=== PATIENT | female | born 1980 | race Caucasian/White ===

== ENCOUNTER 2017-03-26 12:30 | Emergency (ER) | payer MEDICAID ==
[~2017-03-26] VITALS: Ht 157.5 cm; Wt 99.8 kg
[~2017-03-26 12:30] MED LIST: ACET250T22 PO; CEFP250T2 PO; CEPH500C PO; HDR4T PO; IBP600T1 PO; IBUP-1780 PO; LBT200T PO; MULT-608 PO; MULT-927 PO; NAPR-243 PO; NF-TRA/ACE PO; ONDA4TAB11 PO; OXYC-12 PO; PALI273S IM; SULF1TAB38 PO; TRAZ100T92 PO; TRM50T PO
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
[2017-03-26 12:44] LABS: BASOPHILS % (AUTO) 0 % (0-10); EOSINOPHILS # (AUTO) 0.1 10^3/uL (0.0-0.3); EOSINOPHILS % (AUTO) 1 % (0-10); LYMPHOCYTES # (AUTO) 2.1 X 10^3 (1.0-4.0); LYMPHOCYTES % (AUTO) 25 % (12-44); MEAN CORPUSCULAR HEMOGLOBIN 31 PG (25-34); MEAN CORPUSCULAR HGB CONC 35 G/DL (32-36); MEAN CORPUSCULAR VOLUME 88 FL (80-99); MEAN PLATELET VOLUME 10.1 FL (7.4-10.4); MONOCYTES # (AUTO) 0.5 X 10^3 (0.0-1.0); MONOCYTES % (AUTO) 5 % (0-12); NEUTROPHILS # (AUTO) 5.9 X 10^3 (1.8-7.8); NEUTROPHILS % (AUTO) 69 % (42-75); PLATELET COUNT 210 10^3/uL (130-400); RED BLOOD COUNT 4.84 10^6/uL (4.35-5.85); RED CELL DISTRIBUTION WIDTH 13.2 % (10.0-14.5); WHITE BLOOD COUNT 8.6 10^3/uL (4.3-11.0)
[2017-03-26] MEDS ORDERED: ONDANSETRON 4 MG/2 ML (SDV) Z0FRAN IVP ONE (12:45)
[2017-03-26] MEDS ORDERED: NS IV 1000 ML 1,000 ML IV SCH (12:45)
[2017-03-26 13:02] LABS: ALANINE AMINOTRANSFERASE 20 U/L (0-55); ALBUMIN 4.2 GM/DL (3.2-4.5); ANION GAP 13 MMOL/L (5-14); ASPARTATE AMINO TRANSFERASE 13 U/L (5-34); BILIRUBIN,TOTAL 0.5 MG/DL (0.1-1.0); BLOOD UREA NITROGEN 7 MG/DL (7-18); BUN/CREATININE RATIO 8; CALCIUM 9.7 MG/DL (8.5-10.1); CARBON DIOXIDE 20 MMOL/L (21-32); CHLORIDE 105 MMOL/L (98-107); CREATININE SERUM 0.89 MG/DL (0.60-1.30); GFR ESTIMATED > 60; GLUCOSE 144 MG/DL (70-105); POTASSIUM 4.1 MMOL/L (3.6-5.0); SODIUM 138 MMOL/L (135-145); TOTAL PROTEIN 7.8 GM/DL (6.4-8.2)
[2017-03-26 13:33] VITALS: BP 119/85
[2017-03-26 13:46] LABS: KETONES,URINE 1+ (NEGATIVE); LEUKOCYTE ESTERASE ,URINE 3+ (NEGATIVE); NITRITE,URINE NEGATIVE (NEGATIVE); PH,URINE 6 (5-9); PROTEIN,URINE 3+ (NEGATIVE); UROBILINOGEN,URINE 8 MG/DL (NORMAL)
[2017-03-26] MEDS ORDERED: SULF1TAB35 PO (14:09)
[2017-03-26 14:20] VITALS: BP 114/85
[2017-03-26 14:26] LABS: HYALINE CASTS, URINE 25-50 /LPF; SQUAMOUS EPITHELIAL CELL,UR TNTC /HPF; WBC,URINE 25-50 /HPF
[2017-03-26 14:27] LABS: BILIRUBIN,URINE 1+ (NEGATIVE)
== END 2017-03-26 14:20 | disposition home or self-care (01) ==
LOC: EDUNIT# 12:30 → ER 12:32
DX: R55 Syncope and collapse (principal); N39.0 Urinary tract infection, site not specified; F15.10 Other stimulant abuse, uncomplicated; F20.9 Schizophrenia, unspecified; Z87.891 Personal history of nicotine dependence; Z87.59 Personal history of other complications of pregnancy, childbirth and the puerperium; Z98.51 Tubal ligation status; Z87.09 Personal history of other diseases of the respiratory system
CPT/HCPCS: 36415; 80053; 80306; 81000; 83605; 84703; 85025; 87088; 93005; 96374

== ENCOUNTER 2020-08-14 05:54 | Emergency (ER) | payer MEDICAID ==
[~2020-08-14] VITALS: Ht 157 cm; Wt 90.7 kg
[~2020-08-14 05:54] MED LIST changes: -ACET500C40 PO; -CEPH500T PO; -ONDANSETRON 4 MG/2 ML (SDV) Z0FRAN IVP ONE; -fentaNYL INJECTION 100 MCG/2 ML AMP IVP ONE
[2020-08-14] MEDS ORDERED: ONDANSETRON 4 MG/2 ML (SDV) Z0FRAN IVP ONE (06:30)
[2020-08-14] MEDS ORDERED: LACTATED RINGERS 1,000 ML IV ONE (06:30)
[2020-08-14 06:33] LABS: BILIRUBIN,URINE NEGATIVE (NEGATIVE); CLARITY,URINE SL CLOUDY; COLOR,URINE YELLOW; GLUCOSE, URINE (UA) NEGATIVE (NEGATIVE); KETONES,URINE NEGATIVE (NEGATIVE); LEUKOCYTE ESTERASE ,URINE NEGATIVE (NEGATIVE); NITRITE,URINE NEGATIVE (NEGATIVE); PH,URINE 6.5 (5-9); PROTEIN,URINE NEGATIVE (NEGATIVE)
[2020-08-14 06:40] VITALS: BP 151/99
[2020-08-14 06:42] LABS: BACTERIA,URINE TRACE /HPF
[2020-08-14 06:46] LABS: AMPHETAMINE SCREEN, URINE NEGATIVE (NEGATIVE); BENZODIAZEPINES SCREEN URINE NEGATIVE (NEGATIVE); CANNABINOID SCREEN, URINE NEGATIVE (NEGATIVE); COCAINE SCREEN URINE NEGATIVE (NEGATIVE); METHAMPHETAMINE SCREEN URINE S NEGATIVE (NEGATIVE)
[2020-08-14 06:47] LABS: BARBITURATE SCREEN URINE NEGATIVE (NEGATIVE); METHADONE STAT NEGATIVE (NEGATIVE); OPIATE SCREEN URINE NEGATIVE (NEGATIVE); OXYCODONE STAT NEGATIVE (NEGATIVE); PROPOXYPHENE STAT NEGATIVE (NEGATIVE); TRICYCLIC ANTIDEPRESSANTS SCRE NEGATIVE (NEGATIVE)
--- NOTE | 2020-08-14 06:48 | ED General ---
General Chief Complaint: Dizziness/Syncope Stated Complaint: NAUSEA,DIZZY,ABD PAIN,VOMITING Source of Information: Patient Exam Limitations: No Limitations History of Present Illness Date Seen by Provider: Aug 14, 2020 Time Seen by Provider: 06:09 Initial Comments This 40-year-old woman presents to the emergency room with complaints of vertiginous dizziness, nausea, vomiting, a little bit of cough and shortness of breath, and sore throat. She reports having abdominal discomfort and nausea intermittently for a few days. The dizziness started this morning at about 05:30. She proclaimed no drug or alcohol use upon entering the exam room. She also reports light sensitivity but does not report any headache. She does not appear to have any focal neurologic deficits and does not describe any focal neurologic deficits. She reports muscle soreness and sore throat arm presumed to be from working out on a treadmill in a cold garage. She denies any dysuria, frequency, vaginal discharge, or vaginal pain. Allergies and Home Medications Allergies Coded Allergies: acetaminophen (Unverified Allergy, Mild, NAUSEA, 09/26/09) hydrocodone (Unverified Allergy, Mild, NAUSEA, 09/26/09) NKANo Known Allergies (Verified Allergy, Unknown, 11/20/06) codeine (Verified Allergy, Unknown, 11/09/15) Home Medications Acetazolamide 500 Mg Capsule.er, 500 MG PO BID Prescribed by: GWEN MAXWELL on 08/14/20 1149 Cephalexin 500 Mg Tablet, 500 MG PO TID Prescribed by: GWEN MAXWELL on 08/14/20 1149 Sulfamethoxazole/Trimethoprim 1 Each Tablet, 1 EACH PO BID Prescribed by: MANOJ MOELLER on 03/26/17 1409 Patient Home Medication List Home Medication List Reviewed: Yes Review of Systems Review of Systems Constitutional: no symptoms reported EENTM: no symptoms reported Respiratory: cough, short of breath Cardiovascular: see HPI Gastrointestinal: see HPI Genitourinary: no symptoms reported Musculoskeletal: no symptoms reported Skin: no symptoms reported Psychiatric/Neurological: See HPI Hematologic/Lymphatic: No Symptoms Reported Immunological/Allergic: no symptoms reported Past Jcvtxbu-Aygcin-Knijvm Hx Past Med/Social Hx: Reviewed and Corrections made Patient Social History Alcohol Use: Denies Use Drug of Choice: Prior positive methamphetamine drug screen Type Used: Cigarettes Recent Hopitalizations: No Seasonal Allergies Seasonal Allergies: No Past Medical History Surgeries: Yes (RT Ankle surgery x 2) Section, Orthopedic, Tubal Ligation Respiratory: No Cardiac: No Neurological: No Reproductive Disorders: Yes Sexually Transmitted Disease: Yes (HPV) Gastrointestinal: No Musculoskeletal: No Endocrine: No Cancer: No Psychosocial: Yes Schizophrenia Integumentary: No Blood Disorders: No Family Medical History No Pertinent Family Hx Physical Exam Vital Signs Vital Signs - First Documented 08/14/20 06:40 Temp 36.2 Pulse 74 Resp 16 B/P (MAP) 151/99 (116) O2 Delivery Room Air Capillary Refill : Height, Weight, BMI Height: 5'2.00" Weight: 220lbs. 0.00oz. 99.956397ax; 28.12 BMI Method:Stated General Appearance: No Apparent Distress, WD/WN HEENT: PERRL/EOMI, Normal ENT Inspection, Other (Oropharynx dry) Neck: Normal Inspection Respiratory: Lungs Clear, Normal Breath Sounds, No Accessory Muscle Use Cardiovascular: Regular Rate, Rhythm, No Edema, No Murmur Gastrointestinal: Normal Bowel Sounds, Soft, Tenderness (Over the pelvic region) Extremity: Normal Inspection, No Pedal Edema Neurologic/Psychiatric: Alert, Oriented x3, No Motor/Sensory Deficits, Normal Mood/Affect, telephoner II-XII Norm as Tested Skin: Normal Color, Warm/Dry Progress/Results/Core Measures Suspected Sepsis SIRS Temperature: Pulse: Respiratory Rate: Blood Pressure / Mean: Results/Orders Lab Results Laboratory Tests Test 08/14/20 06:20 08/14/20 06:25 08/14/20 07:03 Range/Units Coronavirus 2019 ([facility]) Negative Negative Group A Streptococcus Screen NEGATIVE NEGATIVE Urine Color YELLOW Urine Clarity SL CLOUDY Urine pH 6.5 5-9 Urine Specific [place] <=1.005 1.016-1.022 Urine Protein NEGATIVE NEGATIVE Urine Glucose (UA) NEGATIVE NEGATIVE Urine Ketones NEGATIVE NEGATIVE Urine Nitrite NEGATIVE NEGATIVE Urine Bilirubin NEGATIVE NEGATIVE Urine Urobilinogen 0.2 < = 1.0 MG/DL Urine Leukocyte Esterase NEGATIVE NEGATIVE Urine RBC (Auto) NEGATIVE NEGATIVE Urine RBC NONE /HPF Urine WBC 2-5 /HPF Urine Squamous Epithelial Cells 2-5 /HPF Urine Crystals NONE /LPF Urine Bacteria TRACE /HPF Urine Casts NONE /LPF Urine Mucus NEGATIVE /LPF Urine Culture Indicated NO Urine Opiates Screen NEGATIVE NEGATIVE Urine Oxycodone Screen NEGATIVE NEGATIVE Urine Methadone Screen NEGATIVE NEGATIVE Urine Propoxyphene Screen NEGATIVE NEGATIVE Urine Barbiturates Screen NEGATIVE NEGATIVE Ur Tricyclic Antidepressants Screen NEGATIVE NEGATIVE Urine Phencyclidine Screen NEGATIVE NEGATIVE Urine Amphetamines Screen NEGATIVE NEGATIVE Urine Methamphetamines Screen NEGATIVE NEGATIVE Urine Benzodiazepines Screen NEGATIVE NEGATIVE Urine Cocaine Screen NEGATIVE NEGATIVE Urine Cannabinoids Screen NEGATIVE NEGATIVE Urine Test NEGATIVE NEGATIVE Micro Results Microbiology 08/14/20 Influenza Types A,B Antigen (OZIEL) - Final, Complete My Orders Orders - GWEN COLMENARES MD Ua Culture If Indicated (08/14/20 06:23) Ed Iv/Invasive Line Start (08/14/20 06:23) Lactated Ringers (Lr 1000 Ml Iv Solution (08/14/20 06:30) Ondansetron Injection (Zofran Injectio (08/14/20 06:30) Drug Screen Stat (Urine) (08/14/20 06:23) Influenza A And B Antigens (08/14/20 07:03) Rapid Strep A Screen (08/14/20 07:03) Covid 19 Inhouse Test (08/14/20 07:03) Hcg,Qualitative Urine (08/14/20 07:03) Vital Signs/I&O 08/14/20 06:40 Temp 36.2 Pulse 74 Resp 16 B/P (MAP) 151/99 (116) O2 Delivery Room Air Capillary Refill : Progress Note : Progress Note Patient was seen and examined. Plan was communicated with her which included treatment with Zofran and IV fluids as well as assessment with blood work, COVI D-19 swab, flu swab, and strep swab. While nursing staff was trying to establish an IV and discussing IV access with the patient, she decided to leave without further evaluation. She walked out of the emergency room without any further discussion. Nursing staff noted urine specimen was very clear and they questioned dilution with water. Specific gravity on the urinalysis was very low. Departure Impression Primary Impression: Nausea and vomiting Qualified Codes: R11.2 - Nausea with vomiting, unspecified Additional Impressions: Pelvic pain Left against medical advice Disposition: 07 AGAINST MEDICAL ADVICE Condition: Against Medical Advice Departure-Patient Inst. Referrals: [facility] (PCP/Family) Primary Care Physician GWEN COLMENARES MD Aug 14, 2020 06:48
[2020-08-14] MEDS ORDERED: ACET500C40 PO (11:49)
[2020-08-14] MEDS ORDERED: CEPH500T PO (11:49)
== END 2020-08-14 06:40 | disposition left against medical advice (07) ==
LOC: EDUNIT# 05:54 → ER 05:59
DX: R11.2 Nausea with vomiting, unspecified (principal); R10.2 Pelvic and perineal pain; Z20.822 Contact with and (suspected) exposure to COVID-19; Z88.5 Allergy status to narcotic agent; Z88.6 Allergy status to analgesic agent
CPT/HCPCS: 80306; 81000; 84703; 87430; 87804; 99282; U0002; 87635

== ENCOUNTER → 2020-08-14 | Emergency (ER) | payer MEDICAID ==
[~2020-08-14] VITALS: Ht 157.4 cm; Wt 90.9 kg
[~2020-08-14] MED LIST changes: +ACET500C40 PO; +CEPH500T PO; +ONDANSETRON 4 MG/2 ML (SDV) Z0FRAN IVP ONE; +SULF1TAB35 PO; +TRAZ-227 PO; -TRAZ100T92 PO; +fentaNYL INJECTION 100 MCG/2 ML AMP IVP ONE
[2020-08-14 08:01] LABS: BASOPHILS % (AUTO) 0 % (0-10); EOSINOPHILS # (AUTO) 0.1 10^3/uL (0.0-0.3); EOSINOPHILS % (AUTO) 1 % (0-10); HEMATOCRIT 36 % (35-52); HEMOGLOBIN 11.9 g/dL (11.5-16.0); LYMPHOCYTES # (AUTO) 2.6 10^3/uL (1.0-4.0); LYMPHOCYTES % (AUTO) 27 % (12-44); MEAN CORPUSCULAR HEMOGLOBIN 31 pg (25-34); MEAN CORPUSCULAR HGB CONC 33 g/dL (32-36); MEAN CORPUSCULAR VOLUME 93 fL (80-99); MEAN PLATELET VOLUME 9.7 fL (9.0-12.2); MONOCYTES # (AUTO) 0.8 10^3/uL (0.0-1.0); MONOCYTES % (AUTO) 9 % (0-12); NEUTROPHILS # (AUTO) 6.1 10^3/uL (1.8-7.8); NEUTROPHILS % (AUTO) 63 % (42-75); PLATELET COUNT 254 10^3/uL (130-400); WHITE BLOOD COUNT 9.6 10^3/uL (4.3-11.0)
[2020-08-14 08:12] LABS: ALBUMIN 3.9 GM/DL (3.2-4.5); CHLORIDE 108 MMOL/L (98-107); POTASSIUM 4.2 MMOL/L (3.6-5.0); SODIUM 140 MMOL/L (135-145)
[2020-08-14 08:13] LABS: CALCIUM 8.6 MG/DL (8.5-10.1)
[2020-08-14 08:15] LABS: GLUCOSE 147 MG/DL (70-105); TOTAL PROTEIN 6.6 GM/DL (6.4-8.2)
[2020-08-14 08:16] LABS: BILIRUBIN,TOTAL 0.2 MG/DL (0.1-1.0); CARBON DIOXIDE 20 MMOL/L (21-32)
[2020-08-14 08:18] LABS: ALKALINE PHOSPHATASE 67 U/L (40-136); CREATININE SERUM 0.74 MG/DL (0.60-1.30); GFR ESTIMATED > 60
[2020-08-14 08:19] LABS: BUN/CREATININE RATIO 15
[2020-08-14 08:19] LABS: BILIRUBIN,URINE NEGATIVE (NEGATIVE); CLARITY,URINE SL CLOUDY; COLOR,URINE YELLOW; GLUCOSE, URINE (UA) NEGATIVE (NEGATIVE); KETONES,URINE NEGATIVE (NEGATIVE); LEUKOCYTE ESTERASE ,URINE TRACE (NEGATIVE); NITRITE,URINE NEGATIVE (NEGATIVE); PROTEIN,URINE NEGATIVE (NEGATIVE)
[2020-08-14 08:21] LABS: ALANINE AMINOTRANSFERASE 23 U/L (0-55)
[2020-08-14 08:22] LABS: MAGNESIUM 1.8 MG/DL (1.6-2.4)
[2020-08-14 08:23] LABS: LIPASE 172 U/L (8-78)
[2020-08-14 08:34] LABS: BACTERIA,URINE FEW /HPF
[2020-08-14 08:39] LABS: AMPHETAMINE SCREEN, URINE POSITIVE (NEGATIVE); BARBITURATE SCREEN URINE NEGATIVE (NEGATIVE); BENZODIAZEPINES SCREEN URINE NEGATIVE (NEGATIVE); CANNABINOID SCREEN, URINE NEGATIVE (NEGATIVE); COCAINE SCREEN URINE NEGATIVE (NEGATIVE); METHADONE STAT NEGATIVE (NEGATIVE); METHAMPHETAMINE SCREEN URINE S NEGATIVE (NEGATIVE); OPIATE SCREEN URINE NEGATIVE (NEGATIVE); OXYCODONE STAT NEGATIVE (NEGATIVE); PROPOXYPHENE STAT NEGATIVE (NEGATIVE); TRICYCLIC ANTIDEPRESSANTS SCRE NEGATIVE (NEGATIVE)
[2020-08-14 08:43] LABS: TSH (THYROID ANALYZER) 1.77 UIU/ML (0.35-4.94)
--- NOTE | 2020-08-14 08:52 | ED General ---
General Chief Complaint: Dizziness/Syncope Stated Complaint: NAUSEA,DIZZY,ABD PAIN Nursing Triage Note: AMB TO ROOM WITH OUT PROBLEM HAS JUST LEFT ER FROM BEING SEEN LEFT BEAUSE DID NOT WANT TO HAVE BLOOD DRAWN. APPEARS ANXIOUS WHEN TALKING WITH YOU. C/O NAUSEA AND HEADACHE. ONSET THIS AM. BOYFRIEND AND DAUGHTER IN WAITNG ROOM Nursing Sepsis Screen: No Definite Risk Source of Information: Patient Exam Limitations: No Limitations History of Present Illness Date Seen by Provider: Aug 14, 2020 Time Seen by Provider: 07:40 Initial Comments This 40-year-old woman presents to the emergency room after leaving AGAINST MEDICAL ADVICE earlier this morning. She has multiple complaints including headache, light sensitivity, nausea, sore throat, vomiting, pelvic discomfort. She has a history of pseudotumor cerebri which was diagnosed in 2011 after LP with opening pressure of 36. She reports having multiple therapeutic taps since then. She has not had any therapeutic taps or taken any medications for pseudotumor cerebri for what she describes as a long time, possibly years. She also has history of schizophrenia and her family called concerned about possibly having hallucinations earlier today. Patient does admit to auditory hallucinations but states they are positive and not disturbing. She has not taken her behavioral health medications for months. She had Vraylar last filled in January. She is concerned about pelvic or lower abdominal pain today. She reports a history of ovarian cyst. She is also concerned about possible vaginal infections because of a new partner. She has been intending to get a pelvic exam [facility]. She is afebrile. She is alert and oriented. On her visit earlier today she had negative Covid, influenza, and strep screening. Allergies and Home Medications Allergies Coded Allergies: acetaminophen (Unverified Allergy, Mild, NAUSEA, 09/26/09) hydrocodone (Unverified Allergy, Mild, NAUSEA, 09/26/09) NKANo Known Allergies (Verified Allergy, Unknown, 11/20/06) codeine (Verified Allergy, Unknown, 11/09/15) Home Medications Acetazolamide 500 Mg Capsule.er, 500 MG PO BID Prescribed by: GWEN MAXWELL on 08/14/20 1149 Cephalexin 500 Mg Tablet, 500 MG PO TID Prescribed by: GWEN MAXWELL on 08/14/20 1149 Sulfamethoxazole/Trimethoprim 1 Each Tablet, 1 EACH PO BID Prescribed by: MANOJ MOELLER on 03/26/17 8819 Patient Home Medication List Home Medication List Reviewed: Yes Review of Systems Review of Systems Constitutional: no symptoms reported EENTM: see HPI Respiratory: no symptoms reported Cardiovascular: no symptoms reported Gastrointestinal: see HPI Genitourinary: see HPI : No Musculoskeletal: no symptoms reported Skin: no symptoms reported Psychiatric/Neurological: See HPI Hematologic/Lymphatic: No Symptoms Reported Immunological/Allergic: no symptoms reported Past Mkgykmb-Bedxpl-Azywgz Hx Past Med/Social Hx: Reviewed Nursing Past Med/Soc Hx Patient Social History Alcohol Use: Occasionally Uses Drug of Choice: Prior positive methamphetamine drug screen Smoking Status: Current Everyday Smoker Type Used: Cigarettes Recent Infectious Disease Expo: No Recent Hopitalizations: No Seasonal Allergies Seasonal Allergies: No Past Medical History Surgeries: Yes (RT Ankle surgery x 2) Section, Orthopedic, Tubal Ligation Respiratory: No Cardiac: No Neurological: No : No Reproductive Disorders: Yes Sexually Transmitted Disease: Yes (HPV) Genitourinary: No Gastrointestinal: No Musculoskeletal: No Endocrine: No HEENT: No Cancer: No Psychosocial: Yes Schizophrenia Integumentary: No Blood Disorders: No Family Medical History No Pertinent Family Hx Physical Exam Vital Signs Vital Signs - First Documented 08/14/20 07:39 Temp 35.7 Pulse 90 Resp 18 B/P (MAP) 176/116 (136) Pulse Ox 99 O2 Delivery Room Air Capillary Refill : Less Than 3 Seconds Height, Weight, BMI Height: 5'2.00" Weight: 220lbs. 0.00oz. [id number]; 36.00 BMI Method:Stated General Appearance: No Apparent Distress, WD/WN, Obese HEENT: PERRL/EOMI, Normal ENT Inspection, Other (MM somewhat dry) Neck: Full Range of Motion, Normal Inspection Respiratory: Lungs Clear, Normal Breath Sounds, No Accessory Muscle Use Cardiovascular: Regular Rate, Rhythm, No Edema, No Murmur Gastrointestinal: Normal Bowel Sounds, Soft; No Distended; Tenderness (across the pelvic region) Extremity: Normal Inspection, No Pedal Edema Neurologic/Psychiatric: Alert, Oriented x3, No Motor/Sensory Deficits, Normal Mood/Affect, mother baby rn II-XII Norm as Tested Skin: Normal Color, Warm/Dry Progress/Results/Core Measures Suspected Sepsis Recent Fever Within 48 Hours: No Infection Criteria Present: None New/Unexplained Altered Menta: No Sepsis Screen: No Definite Risk SIRS Temperature: Pulse: 90 Respiratory Rate: 18 Laboratory Tests 08/14/20 07:57: White Blood Count 9.6 Blood Pressure 176 /116 Mean: 136 Laboratory Tests 08/14/20 07:57: Creatinine 0.74, Platelet Count 254, Total Bilirubin 0.2 Results/Orders Lab Results Laboratory Tests Test 08/14/20 07:51 08/14/20 07:57 08/14/20 08:11 Range/Units Erythrocyte Sedimentation Rate 10 0-20 MM/HR White Blood Count 9.6 4.3-11.0 10^3/uL Red Blood Count 3.87 3.80-5.11 10^6/uL Hemoglobin 11.9 11.5-16.0 g/dL Hematocrit 36 35-52 % Mean Corpuscular Volume 93 80-99 fL Mean Corpuscular Hemoglobin 31 25-34 pg Mean Corpuscular Hemoglobin Concent 33 32-36 g/dL Red Cell Distribution Width 14.0 10.0-14.5 % Platelet Count 254 130-400 10^3/uL Mean Platelet Volume 9.7 9.0-12.2 fL Immature Granulocyte % (Auto) 0 % Neutrophils (%) (Auto) 63 42-75 % Lymphocytes (%) (Auto) 27 12-44 % Monocytes (%) (Auto) 9 0-12 % Eosinophils (%) (Auto) 1 0-10 % Basophils (%) (Auto) 0 0-10 % Neutrophils # (Auto) 6.1 1.8-7.8 10^3/uL Lymphocytes # (Auto) 2.6 1.0-4.0 10^3/uL Monocytes # (Auto) 0.8 0.0-1.0 10^3/uL Eosinophils # (Auto) 0.1 0.0-0.3 10^3/uL Basophils # (Auto) 0.0 0.0-0.1 10^3/uL Immature Granulocyte # (Auto) 0.0 0.0-0.1 10^3/uL Sodium Level 140 135-145 MMOL/L Potassium Level 4.2 3.6-5.0 MMOL/L Chloride Level 108 H 98-107 MMOL/L Carbon Dioxide Level 20 L 21-32 MMOL/L Anion Gap 12 5-14 MMOL/L Blood Urea Nitrogen 11 7-18 MG/DL Creatinine 0.74 0.60-1.30 MG/DL Estimat Glomerular Filtration Rate > 60 BUN/Creatinine Ratio 15 Glucose Level 147 H 70-105 MG/DL Calcium Level 8.6 8.5-10.1 MG/DL Corrected Calcium 8.7 8.5-10.1 MG/DL Magnesium Level 1.8 1.6-2.4 MG/DL Total Bilirubin 0.2 0.1-1.0 MG/DL Aspartate Amino Transf (AST/SGOT) 18 5-34 U/L Alanine Aminotransferase (ALT/SGPT) 23 0-55 U/L Alkaline Phosphatase 67 40-136 U/L C-Reactive Protein High Sensitivity 0.25 0.00-0.50 MG/DL Total Protein 6.6 6.4-8.2 GM/DL Albumin 3.9 3.2-4.5 GM/DL Lipase 172 H 8-78 U/L TSH [place] Testing 1.77 0.35-4.94 UIU/ML Serum Test, Qualitative NEGATIVE NEGATIVE Serum Alcohol < 10 <10 MG/DL Urine Color YELLOW Urine Clarity SL CLOUDY Urine pH 7.0 5-9 Urine Specific [place] 1.010 L 1.016-1.022 Urine Protein NEGATIVE NEGATIVE Urine Glucose (UA) NEGATIVE NEGATIVE Urine Ketones NEGATIVE NEGATIVE Urine Nitrite NEGATIVE NEGATIVE Urine Bilirubin NEGATIVE NEGATIVE Urine Urobilinogen 0.2 < = 1.0 MG/DL Urine Leukocyte Esterase TRACE H NEGATIVE Urine RBC (Auto) TRACE-I NEGATIVE Urine RBC NONE /HPF Urine WBC 5-10 H /HPF Urine Squamous Epithelial Cells 5-10 /HPF Urine Crystals NONE /LPF Urine Bacteria FEW H /HPF Urine Casts NONE /LPF Urine Mucus NEGATIVE /LPF Urine Culture Indicated YES Urine Opiates Screen NEGATIVE NEGATIVE Urine Oxycodone Screen NEGATIVE NEGATIVE Urine Methadone Screen NEGATIVE NEGATIVE Urine Propoxyphene Screen NEGATIVE NEGATIVE Urine Barbiturates Screen NEGATIVE NEGATIVE Ur Tricyclic Antidepressants Screen NEGATIVE NEGATIVE Urine Phencyclidine Screen NEGATIVE NEGATIVE Urine Amphetamines Screen POSITIVE H NEGATIVE Urine Methamphetamines Screen NEGATIVE NEGATIVE Urine Benzodiazepines Screen NEGATIVE NEGATIVE Urine Cocaine Screen NEGATIVE NEGATIVE Urine Cannabinoids Screen NEGATIVE NEGATIVE My Orders Orders - GWEN COLMENARES MD Alcohol (08/14/20 07:53) Cbc With Automated Diff (08/14/20 07:53) Comprehensive Metabolic Panel (08/14/20 07:53) Hs C Reactive Protein (08/14/20 07:53) Drug Screen Stat (Urine) (08/14/20 07:53) Hcg,Qualitative Serum (08/14/20 07:53) Lipase (08/14/20 07:53) Magnesium (08/14/20 07:53) Thyroid Analyzer (08/14/20 07:53) Ua Culture If Indicated (08/14/20 07:53) Ondansetron Injection (Zofran Injectio (08/14/20 08:00) Ed Iv/Invasive Line Start (08/14/20 07:53) Fentanyl Injection (Sublimaze Injection (08/14/20 08:15) Erythrocyte Sedimentation Rate (08/14/20 08:13) Urine Culture (08/14/20 08:11) Ct Head Wo (08/14/20 08:35) Us Pelvic (Non Ob)65227 (08/14/20 09:21) Medications Given in ED Current Medications Medications Dose Ordered Sig/Enma Route Start Time Stop Time Status Last Admin Dose Admin Fentanyl Citrate 50 mcg ONCE ONCE IVP 08/14/20 08:15 08/14/20 08:16 DC 08/14/20 08:25 50 MCG Ondansetron HCl 8 mg ONCE ONCE IVP 08/14/20 08:00 08/14/20 08:01 DC 08/14/20 08:06 8 MG Vital Signs/I&O 08/14/20 08/14/20 07:39 12:03 Temp 35.7 Pulse 90 72 Resp 18 18 B/P (MAP) 176/116 (136) 132/97 Pulse Ox 99 98 O2 Delivery Room Air Room Air Capillary Refill : Less Than 3 Seconds Blood Pressure Mean: 136 Progress Note #1: Time: 08:50 Progress Note I have discussed options with this patient. She would like to pursue therapeutic lumbar puncture. I have discussed this with anesthesia and a CT of the head has been requested since her last head imaging was about 4 years ago. Zofran was given for nausea and vomiting. Fentanyl was given for headache. Progress Note #2: Time: 09:[address] was unremarkable. Platelets were normal. We will proceed with therapeutic LP. Patient was offered pelvic exam. Initially she requested this be done in the ER. However, she has now changed her mind and would like to do that in the outpatient setting. Urinary tract infection was identified on urinalysis and we will treat accordingly. Pelvic ultrasound will be obtained after the LP. Progress Note #3: Time: 11:[address] Menon successfully performed therapeutic lumbar puncture. CSF was not sent for analysis. Opening pressure was 27 and closing pressure was 19. 10 mL of CSF was withdrawn. Patient had significant improvement in her symptoms. She also underwent a pelvic ultrasound a mass along the uterine wall suspicious for fibroid. She was advised to follow-up with the women's health provider. She indicated she would go to [facility] for any pelvic exam and STI scree alen. She felt more comfortable doing a pelvic exam there. She has an appointment scheduled for [facility] on the and plans to keep that appointment for further treatment of her schizophrenia. Keflex was prescribed for urinary tract infection. Patient wishes to pursue medical therapy for pseudotumor cerebri prevention with Diamox. Prescription was provi ded. Diagnostic Imaging Diagonstic Imaging: CT Plain Films/CT/US/NM/MRI: head Comments NAME: IVON SALCIDO I MED REC#: [id number] PT STATUS: REG ER : 1980 PHYSICIAN: GWEN COLMENARES MD ADMIT DATE: 08/14/20/ER Signed Date of Exam:08/14/20 CT HEAD WO PROCEDURE: CT head without contrast. TECHNIQUE: Multiple contiguous axial images were obtained through the brain without the use of intravenous contrast. Auto Exposure Controls were utilized during the CT exam to meet ALARA standards for radiation dose reduction. INDICATION: Head pain. History of pseudotumor cerebri. COMPARISON: 12/20/2015. FINDINGS: The ventricular calibers and morphologies are normal. There is no focal or generalized cerebral edema. No sulcal effacement. The basilar cisterns are patent. No mass or mass effect. No findings to suggest an elevation of the intracranial pressures. There has been no interval change. The orbits, sinuses, and calvarium are within normal limits. IMPRESSION: Stable unremarkable CT head. Dictated by: Dictated on workstation # [id number] Dict: 08/14/20 0854 Trans: 08/14/20 1303 [id number] Interpreted by: MARY FINE Electronically signed by: MARY FINE 08/14/20 1303 Reviewed: Reviewed by Me Diagonstic Imaging: Ultrasound Plain Films/CT/US/NM/MRI: pelvis Comments NAME: IVON SALCIDO I [facility] REC#: [id number] PT STATUS: REG ER : 1980 PHYSICIAN: GWEN COLMENARES MD ADMIT DATE: 08/14/20/ER Signed Date of Exam:08/14/20 US PELVIC (NON OB)[id number] INDICATION: Pelvic pain and cramping, history of cysts. TECHNIQUE: Multiple Real-time grayscale sonographic images were obtained of the pelvis transabdominally. Endovaginal imaging was deferred by the patient. CORRELATION STUDY: None. FINDINGS: UTERUS: 10.6 x 4.6 x 5.9 cm. Along the left margins of the uterus is a slightly hypo to isoechoic area of asymmetry measuring approximately 3.3 x 2.1 x 2.2 cm. Vascularity is present. ENDOMETRIUM: 4 mm. The endometrium appearing unremarkable. RIGHT OVARY: 3.8 x 1.8 x 1.9 cm. The right ovary has an unremarkable appearance. No concerning mass. Blood flow is present. LEFT OVARY: 2.9 x 1.7 x 1.8 cm. The left ovary has an unremarkable appearance. No concerning mass. Blood flow is present. No significant free pelvic fluid. IMPRESSION: 1. Approximately 3.3 cm solid, vascularized mass along the left aspect of the uterus. Nonspecific but could be reflective of perhaps a fibroid; however, it is somewhat incompletely assessed on transabdominal limitations only. 2. Otherwise, unremarkable appearance of the ovaries. Dictated by: Dictated on workstation # [id number] Dict: 08/14/20 1104 Trans: 08/14/20 1548 [id number] Interpreted by: KAITLIN JACINTO DO Electronically signed by: KAITLIN JACINTO DO 08/14/20 1548 Reviewed: Reviewed by Me Departure Impression Primary Impression: Pseudotumor cerebri Additional Impressions: Urinary tract infection Qualified Codes: N39.0 - Urinary tract infection, site not specified Nausea and vomiting Qualified Codes: R11.2 - Nausea with vomiting, unspecified Pelvic pain Uterine mass Schizophrenia Qualified Codes: F20.9 - Schizophrenia, unspecified Disposition: 01 HOME, SELF-CARE Condition: Improved Departure-Patient Inst. Decision time for Depature: 11:45 [address]errals: [facility] (PCP/Family) Primary Care Physician ANUJ MCCAULEY DO Patient Instructions: Idiopathic Intracranial Hypertension (Pseudotumor Cerebri) Add. Discharge Instructions: 1. Follow-up with a primary care provider as soon as possible. 2. Follow-up at the [facility] as soon as possible to have your pelvic exam. Alternatively, this can be done at a primary care office or a high school social science teacher's office. 3. Follow-up with Dr. Mccauley or the high school social science teacher of your choice as soon as possible to discuss the results of your ultrasound exam. There is a mass on your uterus that could be a fibroid. This should be followed more closely by a high school social science teacher. 4. Complete your antibiotic as prescribed for treatment of urinary tract infection. Drink plenty of clear liquids to stay well-hydrated and flush your urinary tract. 5. Take acetazolamide as prescribed for prevention of pseudotumor cerebri. Return to care if you have worsening associated symptoms. 6. Call with questions or concerns. Return to the ER if you have significantly worsening symptoms. 7. Keep your upcoming appointment with [facility]. All discharge instructions reviewed with patient and/or family. Voiced understanding. Scripts Cephalexin (Cephalexin) 500 Mg Tablet 500 MG PO TID, #21 TAB Prov: GWEN COLMENARES MD 08/14/20 Acetazolamide (Acetazolamide ER) 500 Mg Capsule.er 500 MG PO BID, #60 CAP Prov: GWEN COLMENARES MD 08/14/20 Copy Copies To 1: ANUJ MCCAULEY JOSHUA T MD Aug 14, 2020 08:52
--- NOTE | 2020-08-14 08:59 | Diagnostic Imaging Report ---
PROCEDURE: CT head without contrast. TECHNIQUE: Multiple contiguous axial images were obtained through the brain without the use of intravenous contrast. Auto Exposure Controls were utilized during the CT exam to meet ALARA standards for radiation dose reduction. INDICATION: Head pain. History of pseudotumor cerebri. COMPARISON: 12/20/2015. FINDINGS: The ventricular calibers and morphologies are normal. There is no focal or generalized cerebral edema. No sulcal effacement. The basilar cisterns are patent. No mass or mass effect. No findings to suggest an elevation of the intracranial pressures. There has been no interval change. The orbits, sinuses, and calvarium are within normal limits. IMPRESSION: Stable unremarkable CT head. Dictated by: Dictated on workstation # [id number]
--- NOTE | 2020-08-14 10:30 | Anesthesia-Procedure Note ---
Procedures/Interventions Procedure Start/Stop/Diagnosis Date of Procedure: Aug 14, 2020 Start Time: 09:20 Referring Physician: Dr Parry Preprocedural Diagnosis: Headaches, Blurry Vision, Hx Psuedotumor Cerebri Brief History Called by Dr Parry for a Dx and poss. therapeutic Lumbar Puncture. Pt has a history of pseudotumor cerebri with previous therapeutic LP. She has been having headaches and blurry vision for several months. Risks, benefits and alternatives to LP was discussed with the patient and she agreed to proceed, consent was signed. Stop Time: 10:05 Postprocedural Diagnosis: Same, but headache improved Lumbar Puncture Discussed Risk,Benefits: Yes Patient Consents: Yes Position: L3-4, Right Sterile Technique: Yes (ChloraPrep and drape) Opening Pressure: 27 cm CSF Fluid Color: Clear Spinal Needle Used: 22g Brock 3 1/2 inch Procedure Notes See above for details. Pt had transient paresthesia on the right, improved with needle withdrawal and redirect. Clear CSF was obtained after redirect times 2. Opening pressure of 27 cm CSF was noted and 10 mL of clear CSF was withdrawn. Recheck of pressure was 19 cm CSF and patient stated her headache was much improved. Sterile bandage was applied. Pt tolerated the procedure well. She was going to maintain her supine position for 15-20 minutes and then she was will be stable for discharge to home if Dr Parry agrees. DIANE MOORE DO Aug 14, 2020 10:29
--- NOTE | 2020-08-14 11:11 | Diagnostic Imaging Report ---
INDICATION: Pelvic pain and cramping, history of cysts. TECHNIQUE: Multiple Real-time grayscale sonographic images were obtained of the pelvis transabdominally. Endovaginal imaging was deferred by the patient. CORRELATION STUDY: None. FINDINGS: UTERUS: 10.6 x 4.6 x 5.9 cm. Along the left margins of the uterus is a slightly hypo to isoechoic area of asymmetry measuring approximately 3.3 x 2.1 x 2.2 cm. Vascularity is present. ENDOMETRIUM: 4 mm. The endometrium appearing unremarkable. RIGHT OVARY: 3.8 x 1.8 x 1.9 cm. The right ovary has an unremarkable appearance. No concerning mass. Blood flow is present. LEFT OVARY: 2.9 x 1.7 x 1.8 cm. The left ovary has an unremarkable appearance. No concerning mass. Blood flow is present. No significant free pelvic fluid. IMPRESSION: 1. Approximately 3.3 cm solid, vascularized mass along the left aspect of the uterus. Nonspecific but could be reflective of perhaps a fibroid; however, it is somewhat incompletely assessed on transabdominal limitations only. 2. Otherwise, unremarkable appearance of the ovaries. Dictated by: Dictated on workstation # [id number]
[2020-08-14 12:03] VITALS: BP 132/97
== END ==
LOC: EDUNIT# 07:35 → ER 07:36
DX: N85.8 Other specified noninflammatory disorders of uterus (principal); N39.0 Urinary tract infection, site not specified; G93.2 Benign intracranial hypertension; F20.9 Schizophrenia, unspecified; F17.210 Nicotine dependence, cigarettes, uncomplicated; Z98.51 Tubal ligation status; Z88.5 Allergy status to narcotic agent
CPT/HCPCS: 70450; 76856; 80053; 80306; 81000; 83690; 83735; 84443; 84703; 85025; 85652; 86141; 87088; G0480; 36415; 80320; 87077

== ENCOUNTER 2020-10-06 06:30 | Emergency (ER) | payer MEDICAID ==
[~2020-10-06 06:30] MED LIST changes: +ACET500C40 PO; +CEPH500T PO
[2020-10-06 06:52] VITALS: BP 154/106
[2020-10-06] MEDS ORDERED: TETANUS,DIPTH,PERTUSS P/F (BOOSTRIX) 0.5 ML VIAL IM ONE (07:15)
[2020-10-06 07:17] LABS: BILIRUBIN,URINE NEGATIVE (NEGATIVE); COLOR,URINE YELLOW; GLUCOSE, URINE (UA) NEGATIVE (NEGATIVE); KETONES,URINE NEGATIVE (NEGATIVE); LEUKOCYTE ESTERASE ,URINE 2+ (NEGATIVE); NITRITE,URINE NEGATIVE (NEGATIVE); PH,URINE 6.5 (5-9); PROTEIN,URINE NEGATIVE (NEGATIVE)
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
[2020-10-06 07:31] LABS: AMPHETAMINE SCREEN, URINE NEGATIVE (NEGATIVE); BACTERIA,URINE FEW /HPF; BARBITURATE SCREEN URINE NEGATIVE (NEGATIVE); BENZODIAZEPINES SCREEN URINE NEGATIVE (NEGATIVE); CANNABINOID SCREEN, URINE POSITIVE (NEGATIVE); CLARITY,URINE SL CLOUDY; COCAINE SCREEN URINE NEGATIVE (NEGATIVE); METHADONE STAT NEGATIVE (NEGATIVE); METHAMPHETAMINE SCREEN URINE S POSITIVE (NEGATIVE); OPIATE SCREEN URINE NEGATIVE (NEGATIVE); OXYCODONE STAT NEGATIVE (NEGATIVE); PROPOXYPHENE STAT NEGATIVE (NEGATIVE); TRICYCLIC ANTIDEPRESSANTS SCRE NEGATIVE (NEGATIVE)
== END 2020-10-06 07:33 | disposition left against medical advice (07) ==
LOC: EDUNIT# 06:30 → ER 06:34
DX: S80.212A Abrasion, left knee, initial encounter (principal); F15.10 Other stimulant abuse, uncomplicated; F17.210 Nicotine dependence, cigarettes, uncomplicated; Z88.6 Allergy status to analgesic agent; Z88.5 Allergy status to narcotic agent; Z23 Encounter for immunization; X58.XXXA Exposure to other specified factors, initial encounter
CPT/HCPCS: 80306; 81000; 84703; 87088; 99282

== ENCOUNTER 2020-11-19 20:39 | Emergency (ER) | payer MEDICAID ==
[~2020-11-19] VITALS: Ht 157.4 cm; Wt 83.9 kg
[2020-11-19] MEDS ORDERED: KETOROLAC 60 MG/2 ML VIAL IM ONE (20:45)
[2020-11-19] MEDS ORDERED: ORPHENADRINE 60 MG/2 ML (NORFLEX) AMP (ED ONLY) IM ONE (20:45)
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
[2020-11-19] MEDS ORDERED: HOLD METFORMIN - RECEIVED CONTRAST 20 ML VIAL IV SCH (21:15)
[2020-11-19] MEDS ORDERED: NS 100 ML (IVPB) BAG IV ONE (21:15)
[2020-11-19] MEDS ORDERED: IOHEXOL 350 MG/ML 100 ML (OMNIPAQUE 350) VIAL IV ONE (21:15)
[2020-11-19] MEDS ORDERED: CATHETER FLUSH 10 ML SYR IV PRN (21:15)
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
[2020-11-19 22:15] VITALS: BP 136/84
== END 2020-11-19 22:15 | disposition home or self-care (01) ==
LOC: EDUNIT# 20:39 → ER 20:40
DX: S60.222A Contusion of left hand, initial encounter (principal); M79.662 Pain in left lower leg; R68.84 Jaw pain; Y04.0XXA Assault by unarmed brawl or fight, initial encounter
CPT/HCPCS: 70100; 73130; 73590; 74177

== ENCOUNTER 2021-02-08 16:48 | Emergency (ER) | payer SELFPAY ==
[~2021-02-08] VITALS: Ht 157 cm; Wt 83.9 kg
[~2021-02-08 16:48] MED LIST changes: -SULF1TAB35 PO
--- NOTE | 2021-02-08 17:27 | ED Cough/URI ---
General Chief Complaint: Respiratory Problems Stated Complaint: COVID + Source: patient History of Present Illness Date Seen by Provider: Feb 08, 2021 Time Seen by Provider: 17:15 Initial Comments 40-year-old female presenting to the emergency department after she had a positive Covid test today. She states she tried to check into rehab and they did a Covid test which was positive. She then went to [facility] to get another test which was also positive. Having symptoms January 27 which included chills, fever, cough, nausea, vomiting, diarrhea, and now shortness of breath. She states that symptoms have been slowly improving for most of them. She is here because she wants to be sure her oxygen levels are okay and wants to know what she can do as far as where to stay. She is otherwise denying any other acute complaints. Allergies and Home Medications Allergies Coded Allergies: acetaminophen (Unverified Allergy, Mild, NAUSEA, 09/26/09) hydrocodone (Unverified Allergy, Mild, NAUSEA, 09/26/09) NKANo Known Allergies (Verified Allergy, Unknown, 11/20/06) codeine (Verified Allergy, Unknown, 11/09/15) Home Medications Acetazolamide 500 Mg Capsule.er, 500 MG PO BID Prescribed by: GWEN MAXWELL on 08/14/20 1149 Cephalexin 500 Mg Tablet, 500 MG PO TID Prescribed by: GWEN MAXWELL on 08/14/20 1149 Sulfamethoxazole/Trimethoprim 1 Each Tablet, 1 EACH PO BID Prescribed by: MANOJ MOELLER on 03/26/17 1409 Patient Home Medication List Home Medication List Reviewed: Yes Review of Systems Review of Systems Constitutional: chills, fever EENTM: ear pain; No blurred vision Respiratory: cough, short of breath Cardiovascular: No chest pain Gastrointestinal: No abdominal pain; diarrhea, nausea, vomiting Genitourinary: No dysuria Musculoskeletal: No back pain Skin: No rash Psychiatric/Neurological: Denies Anxiety Hematologic/Lymphatic: No Symptoms Reported Immunological/Allergic: no symptoms reported All Other Systems Reviewed Negative Unless Noted: Yes Past Sdfiyfv-Tnxnwe-Lwedcw Hx Patient Social History Tobacco Use?: Yes Tobacco type used: Cigarettes Smoking Status: Light Tobacco Smoker Substance use?: Unable to obtain Alcohol Use?: Yes Alcohol type: Hard Liquor Alcohol Frequency: Several times a month Pt feels they are or have been: No Seasonal Allergies Seasonal Allergies: No Past Medical History Surgeries: Yes (RT Ankle surgery x 2) Section, Orthopedic, Tubal Ligation Respiratory: No Cardiac: No Neurological: No Reproductive Disorders: Yes Sexually Transmitted Disease: Yes (HPV) Genitourinary: No Gastrointestinal: No Musculoskeletal: No Endocrine: No HEENT: No Cancer: No Psychosocial: Yes Schizophrenia Integumentary: No Blood Disorders: No Family Medical History No Pertinent Family Hx Physical Exam Vital Signs - First Documented 02/08/21 17:20 Temp 36.8 Pulse 88 Resp 18 B/P (MAP) 128/92 (104) Pulse Ox 98 O2 Delivery Room Air Capillary Refill : Height: 5'2.00" Weight: 220lbs. 0.00oz. 99.872222cz; 33.00 BMI Method:Stated General Appearance: WD/WN, no apparent distress Eyes: Bilateral Eye Normal Inspection, Bilateral Eye PERRL HEENT: PERRL/EOMI, normal ENT inspection, TMs normal, pharynx normal Neck: non-tender, full range of motion, supple, normal inspection Respiratory: chest non-tender, lungs clear, normal breath sounds, no respiratory distress, no accessory muscle use Cardiovascular: regular rate, rhythm, no edema, no murmur Gastrointestinal: normal bowel sounds, non tender, soft; No distended, No guarding, No rebound Extremities: normal range of motion, non-tender, normal inspection, no pedal edema, no calf tenderness Neurologic/Psychiatric: no motor/sensory deficits, alert, normal mood/affect Skin: normal color, warm/dry Lymphatic: no adenopathy Progress/Results/Core Measures Suspected Sepsis SIRS Temperature: Pulse: Respiratory Rate: Blood Pressure / Mean: Results/Orders Vital Signs/I&O 02/08/21 02/08/21 17:20 17:38 Temp 36.8 Pulse 88 90 Resp 18 16 B/P (MAP) 128/92 (104) 126/95 Pulse Ox 98 98 O2 Delivery Room Air Room Air Capillary Refill : Progress Note : Progress Note 40-year-old female with above history coming in due to Covid and being short of breath. ABCs were intact and vitals were stable on presentation. Her oxygen saturation was 97%. I walked her vigorously around the room for greater than 1 minute and her oxygen saturation actually went up. Her heart rate went from 85 to 95 which I believe is appropriate. Her lung sounds were clear. Although she is Covid positive and exhibiting most of the signs and symptoms of Covid, I believe from a respiratory standpoint she is actually doing very well. She is low risk for PE per Elkins criteria and is PERC negative. She is not having any chest pain. She is not exhibiting any signs of withdrawal at this time as well. I discussed with her that she can isolate in one room of the house and people can bring food to the door for the remainder of her isolation if she does not have any ROS to stay. She said she may get a tent, but she is unsure what she will do at this time. She was wondering if she could stay in the hospital for her isolation, but I discussed that we are unable to do that for stable patients given we are completely full at this time. She was then discharged home in stable condition with strict return precautions. I did offer her Zofran for nausea as prescription, but she states she is okay without it for now. Departure Impression Primary Impression: COVID-19 Disposition: 01 HOME, SELF-CARE Condition: Stable Departure-Patient Inst. Decision time for Depature: 17:26 Referrals: [facility] (PCP/Family) Primary Care Physician Patient Instructions: COVID-19 (DC) Add. Discharge Instructions: You are seen in emergency department because you had a positive Covid test and you are feeling short of breath. Your lungs sounded clear and your oxygen looked good on the monitor. Your heart rate looked good as well. Given that you have been symptomatic since January 27, you likely are nearing the end of your infection. Continue quarantining until your symptoms have improved. At that time you can attempt to go to rehab again and likely they will test you to try to get a negative result. If you have any concerns, worsening of symptoms, you can always come back to the emergency department. All discharge instructions reviewed with patient and/or family. Voiced understanding. LOAN WELLS MD Feb 08, 2021 17:27
[2021-02-08 17:38] VITALS: BP 126/95
== END 2021-02-08 17:38 | disposition home or self-care (01) ==
LOC: EDUNIT# 16:48 → ER 16:50
DX: U07.1 COVID-19 (principal); F17.210 Nicotine dependence, cigarettes, uncomplicated
CPT/HCPCS: 99281

== ENCOUNTER 2022-12-01 12:13 | Emergency (ER) | payer SELFPAY ==
[~2022-12-01] VITALS: Ht 157.4 cm; Wt 83.9 kg
[2022-12-01] MEDS ORDERED: NS IV 1000 ML 1,000 ML IV STA ×2 (13:08→14:15)
--- NOTE | 2022-12-01 13:19 | ED General ---
General Chief Complaint: Dizziness/Syncope Stated Complaint: PASSED OUT AT WORK Nursing Triage Note: BLACKED OUT AT WORK TODAY AROUND NOON, FEELING ILL FOR A FEW DAYS WITH DIARRHEA AND VOMITING. Source of Information: Patient Exam Limitations: No Limitations (LOAN TUCKER) History of Present Illness Date Seen by Provider: Dec 01, 2022 Time Seen by Provider: 13:14 Initial Comments Patient Is a 42-year-old female who presents to the ED for syncopal episode. She states around 12:00 she was sitting at a table at work. 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 She states she had 2 episodes where she blacked out. She cannot recall exactly what happened. Patient states workers at work helped assist her. She states after she woke up she felt like she went blind where she lost vision but that improved quickly. She she states since Thursday she has been feeling nauseous with episode of vomiting and diarrhea. Decreased appetite. She reports feeling weak and fatigued. She reports generalized abdominal pain without any specific localized tenderness. Normal urination. She states she drinks about 1/5 or a pint of liquor daily. She did drink this morning. History of chronic alcohol abuse. Denies any drug use. She denies of any current headache, dizziness, visual changes, sore throat, cough, chest pain or shortness of breath. Denies history of heart disease, COPD or asthma. Patient appears sluggish. Denies of any drug use. Denies of any seizure-like activity such as convulsion or shaking before she lost consciousness. She was not postictal. (LOAN TUCKER) Allergies and Home Medications Allergies Coded Allergies: acetaminophen (Unverified Allergy, Mild, NAUSEA, 12/01/22) hydrocodone (Unverified Allergy, Mild, NAUSEA, 12/01/22) NKANo Known Allergies (Verified Allergy, Unknown, 12/01/22) codeine (Verified Allergy, Unknown, 12/01/22) Patient Home Medication List Home Medication List Reviewed: Yes (LOAN TUCKER) Acetazolamide (Acetazolamide ER) 500 Mg Capsule.er, 500 MG PO BID Prescribed by: GWEN MAXWELL on 08/14/20 1149 Cephalexin (Cephalexin) 500 Mg Tablet, 500 MG PO TID Prescribed by: GWEN MAXWELL on 08/14/20 1149 Sulfamethoxazole/Trimethoprim (Bactrim Ds Tablet) 1 Each Tablet, 1 EACH PO BID Prescribed by: MANOJ MOELLER on 03/26/17 1409 Review of Systems Review of Systems Constitutional: No chills, No diaphoresis, No fever, No malaise, No weakness EENTM: No hearing loss, No ear pain, No blurred vision, No double vision Respiratory: No dyspnea on exertion Cardiovascular: No chest pain Gastrointestinal: abdominal pain, diarrhea, vomiting Genitourinary: No decreased output, No discharge, No dysuria, No frequency Musculoskeletal: No back pain Skin: No change in color, No change in hair/nails Psychiatric/Neurological: Other (syncope) (LOAN TUCKER) Past Ewlhzmw-Oxrgij-Dqjran Hx Patient Social History Tobacco type used: Cigarettes Smoking Status: Light Tobacco Smoker Use of E-Cig and/or Vaping dev: No Substance use?: No Alcohol Use?: Yes Alcohol type: Hard Liquor Alcohol Frequency: Daily (LOAN TUCKER) Immunizations Up To Date Influenza Vaccine Up-to-Date: No; Not Current First/Initial COVID19 Vaccinat: NO (LOAN TUCKER) Seasonal Allergies Seasonal Allergies: No (LOAN TUCKER) Past Medical History Surgery/Hospitalization HX: DENIES CSECTION Surgeries: Yes (RT Ankle surgery x 2) Section, Orthopedic, Tubal Ligation Respiratory: No Cardiac: No Neurological: No Last Menstrual Period: Nov 27, 2022 Reproductive Disorders: Yes Sexually Transmitted Disease: Yes (HPV) Genitourinary: No Gastrointestinal: No Musculoskeletal: No Endocrine: No HEENT: No Cancer: No Psychosocial: Yes Schizophrenia Integumentary: No Blood Disorders: No (LOAN TUCKER) Family Medical History No Pertinent Family Hx (LOAN TUCKER) Physical Exam Vital Signs Vital Signs - First Documented 12/01/22 12:26 Temp 36.6 Pulse 102 Resp 16 B/P (MAP) 101/65 (77) Pulse Ox 96 O2 Delivery Room Air (GWEN COLMENARES MD) Vital Signs Capillary Refill : Less Than 3 Seconds (LOAN TUCKER) Height, Weight, BMI Height: 5'2.00" Weight: 220lbs. 0.00oz. 99.429704dh; 33.00 BMI Method:Stated General Appearance: No Apparent Distress, WD/WN Eyes: Bilateral Eye Normal Inspection, Bilateral Eye PERRL, Bilateral Eye EOMI HEENT: PERRL/EOMI, TMs Normal, Normal ENT Inspection, Pharynx Normal Neck: Full Range of Motion, Normal Inspection, Non Tender, Supple Respiratory: Chest Non Tender, Lungs Clear, Normal Breath Sounds, No Accessory Muscle Use, No Respiratory Distress Cardiovascular: Regular Rate, Rhythm, No Edema, No Gallop, No JVD Gastrointestinal: Normal Bowel Sounds, No Organomegaly, No Pulsatile Mass, Non Tender Back: Normal Inspection, No CVA Tenderness, No Vertebral Tenderness Extremity: Normal Capillary Refill, Normal Inspection, Normal Range of Motion, Non Tender Neurologic/Psychiatric: Alert, Oriented x3, No Motor/Sensory Deficits, Normal 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, 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 as Tested Skin: Normal Color, Warm/Dry (LOAN TUCKER) Progress/Results/Core Measures Suspected Sepsis SIRS Temperature: Pulse: 102 Respiratory Rate: 16 Laboratory Tests 12/01/22 13:24: White Blood Count 6.1 Blood Pressure 101 /65 Mean: 77 Laboratory Tests 12/01/22 13:24: Creatinine 1.16, Platelet Count 220, Total Bilirubin 1.0 (LOAN TUCKER) Results/Orders Lab Results Laboratory Tests Test 12/01/22 13:24 12/01/22 15:10 Range/Units White Blood Count 6.1 4.3-11.0 10^3/uL Red Blood Count 4.38 3.80-5.11 10^6/uL Hemoglobin 14.6 11.5-16.0 g/dL Hematocrit 41 35-52 % Mean Corpuscular Volume 95 80-99 fL Mean Corpuscular Hemoglobin 33 25-34 pg Mean Corpuscular Hemoglobin Concent 35 32-36 g/dL Red Cell Distribution Width 12.4 10.0-14.5 % Platelet Count 220 130-400 10^3/uL Mean Platelet Volume 9.9 9.0-12.2 fL Immature Granulocyte % (Auto) 1 % Neutrophils (%) (Auto) 71 42-75 % Lymphocytes (%) (Auto) 21 12-44 % Monocytes (%) (Auto) 7 0-12 % Eosinophils (%) (Auto) 1 0-10 % Basophils (%) (Auto) 1 0-10 % Neutrophils # (Auto) 4.4 1.8-7.8 10^3/uL Lymphocytes # (Auto) 1.3 1.0-4.0 10^3/uL Monocytes # (Auto) 0.4 0.0-1.0 10^3/uL Eosinophils # (Auto) 0.0 0.0-0.3 10^3/uL Basophils # (Auto) 0.0 0.0-0.1 10^3/uL Immature Granulocyte # (Auto) 0.0 0.0-0.1 10^3/uL Sodium Level 134 L 135-145 MMOL/L Potassium Level 4.2 3.6-5.0 MMOL/L Chloride Level 99 98-107 MMOL/L Carbon Dioxide Level 23 21-32 MMOL/L Anion Gap 12 5-14 MMOL/L Blood Urea Nitrogen 15 7-18 MG/DL Creatinine 1.16 0.60-1.30 MG/DL Estimat Glomerular Filtration Rate 61 BUN/Creatinine Ratio 13 Glucose Level 239 H 70-105 MG/DL Calcium Level 9.9 8.5-10.1 MG/DL Corrected Calcium 9.7 8.5-10.1 MG/DL Magnesium Level 1.9 1.6-2.4 MG/DL Total Bilirubin 1.0 0.1-1.0 MG/DL Aspartate Amino Transf (AST/SGOT) 55 H 5-34 U/L Alanine Aminotransferase (ALT/SGPT) 70 H 0-55 U/L Alkaline Phosphatase 84 40-136 U/L Total Protein 7.5 6.4-8.2 GM/DL Albumin 4.2 3.2-4.5 GM/DL Lipase 52 8-78 U/L Serum Alcohol < 10 <10 MG/DL Urine Opiates Screen NEGATIVE NEGATIVE Urine Oxycodone Screen NEGATIVE NEGATIVE Urine Methadone Screen NEGATIVE NEGATIVE Urine Propoxyphene Screen NEGATIVE NEGATIVE Urine Barbiturates Screen NEGATIVE NEGATIVE Ur Tricyclic Antidepressants Screen NEGATIVE NEGATIVE Urine Phencyclidine Screen NEGATIVE NEGATIVE Urine Amphetamines Screen POSITIVE H NEGATIVE Urine Methamphetamines Screen POSITIVE H NEGATIVE Urine Benzodiazepines Screen NEGATIVE NEGATIVE Urine Cocaine Screen NEGATIVE NEGATIVE Urine Cannabinoids Screen NEGATIVE NEGATIVE (GWEN COLMENARES MD) Vital Signs/I&O 12/01/22 12/01/22 12:26 15:39 Temp 36.6 Pulse 102 88 91 104 Resp 16 B/P (MAP) 101/65 (77) 122/81 (95) 136/92 (107) 144/64 (90) Pulse Ox 96 O2 Delivery Room Air 12/02/22 00:00 Intake Total 1000 ml Balance 1000 ml (GWEN COLMENARES MD) Vital Signs/I&O Capillary Refill : Less Than 3 Seconds (LOAN TUCKER) Blood Pressure Mean: 77 ECG Comment Sinus rhythm, possible left atrial enlargement, possible right ventricular conduction delay, 86 bpm, QRS duration 90 MS, QTc 407 MS (LOAN TUCKER) Departure Communication (PCP) Reviewed previous ER visits, H&P, lab testing. Patient was brought to the ED by POV for not feeling well and 2 syncopal episodes. Patient states she was at work at the time. She had to sit down. She states she lost consciousness twice back to back. Denies hitting her head. She denies having any chest pain before the episodes. She denies headache. She states she completely blacked out. This was for a short period of time unclear how long. This was witnessed by coworkers . there was no evidence of seizure-like activity before and she was no postictal. History of daily alcohol use. On arrival she is alert and orient x3. GCS of 15. Differential diagnosis of syncope, cardiac arrhythmia, dehydration, viral syndrome, seizure, orthostatic hypotension. Patient vital signs were stable. EKG, CT scan of the head, CBC, CMP was ordered. CT scan head negative for acute abnormality. EKG normal sinus rhythm without evidence of arrhythmia. CBC, CMP grossly unremarkable besides blood sugar 239, AST 55, ALT is 70. Urinalysis was negative for infection positive for methamphetamine use. She did receive 2 L of fluid. Orthostatics were obtained she was not dizzy and were unremarkable. Patient was observed here in the ED. Reviewed previous visits with similar episodes. Potentially underlying viral, dehydration, substance abuse. Does not appear to be cardiac. No known cardiac history. She has had no recent chest pain. No neurological red flag findings. Patient with a stable gait. Recommend strict return precautions to follow-up with PCP in 2 to 3 days for reevaluation. Continue staying hydrated. (LOAN TUCKER) Impression Primary Impression: Syncope Disposition: 01 HOME, SELF-CARE Condition: Stable Departure-Patient Inst. Decision time for Depature: 15:33 (LOAN TUCKER) Referrals: [facility] [place] Primary Care Physician Patient Instructions: Syncope (Fainting) (DC) Add. Discharge Instructions: recommend staying hydrated. Recommend rest for the next 2 or 3 days. If any worsening symptoms return back to ED. All discharge instructions reviewed with patient and/or family. Voiced understanding. Work/School Note: Work Release Form Date Seen in the Emergency Department: Dec 01, 2022 Return to Work: Dec 04, 2022 ATTENDING PHYSICIAN NOTE: I was physically present as attending physician in the emergency department during the care of this patient, but I was not directly involved in the decision making or delivery of care for this patient. (GWEN COLMENARES MD) LOAN TUCKER Dec 01, 2022 13:19 GWEN COLMENARES MD Dec 02, 2022 12:06
[2022-12-01 13:32] LABS: BASOPHILS % (AUTO) 1 % (0-10); EOSINOPHILS % (AUTO) 1 % (0-10); HEMATOCRIT 41 % (35-52); HEMOGLOBIN 14.6 g/dL (11.5-16.0); LYMPHOCYTES # (AUTO) 1.3 10^3/uL (1.0-4.0); LYMPHOCYTES % (AUTO) 21 % (12-44); MEAN CORPUSCULAR HEMOGLOBIN 33 pg (25-34); MEAN CORPUSCULAR HGB CONC 35 g/dL (32-36); MEAN CORPUSCULAR VOLUME 95 fL (80-99); MEAN PLATELET VOLUME 9.9 fL (9.0-12.2); MONOCYTES # (AUTO) 0.4 10^3/uL (0.0-1.0); MONOCYTES % (AUTO) 7 % (0-12); NEUTROPHILS # (AUTO) 4.4 10^3/uL (1.8-7.8); NEUTROPHILS % (AUTO) 71 % (42-75); PLATELET COUNT 220 10^3/uL (130-400); WHITE BLOOD COUNT 6.1 10^3/uL (4.3-11.0)
[2022-12-01 13:41] LABS: ALBUMIN 4.2 GM/DL (3.2-4.5); CHLORIDE 99 MMOL/L (98-107); SODIUM 134 MMOL/L (135-145)
[2022-12-01 13:43] LABS: CALCIUM 9.9 MG/DL (8.5-10.1)
[2022-12-01 13:44] LABS: GLUCOSE 239 MG/DL (70-105); TOTAL PROTEIN 7.5 GM/DL (6.4-8.2)
[2022-12-01 13:45] LABS: CARBON DIOXIDE 23 MMOL/L (21-32)
[2022-12-01 13:47] LABS: ALKALINE PHOSPHATASE 84 U/L (40-136); CREATININE SERUM 1.16 MG/DL (0.60-1.30); GFR ESTIMATED 61
[2022-12-01 13:48] LABS: BUN/CREATININE RATIO 13
[2022-12-01 13:49] LABS: POTASSIUM 4.2 MMOL/L (3.6-5.0)
[2022-12-01 13:50] LABS: ALANINE AMINOTRANSFERASE 70 U/L (0-55); MAGNESIUM 1.9 MG/DL (1.6-2.4)
[2022-12-01 13:51] LABS: LIPASE 52 U/L (8-78)
--- NOTE | 2022-12-01 14:24 | Diagnostic Imaging Report ---
Clinical indications: Patient passed out, weak, and blurred vision. Exam: Axial CT scan of the brain without IV contrast with coronal and sagittal reformatted images. Auto Exposure Controls were utilized during the CT exam to meet ALARA standards for radiation dose reduction. Comparison: Head CT without contrast dated 08/14/2020. Findings: There is no evidence of acute cerebral infarct, intracranial hemorrhage, or gross mass effect. The brain parenchymal volume appears appropriate for patient's age. There is normal orozco-white matter distinction. There is no significant midline shift or herniation. There is no evidence of hydrocephalus. The basal cisterns are unremarkable. The skull, extracranial soft tissue, and orbits are unremarkable. The paranasal sinuses are unremarkable. Temporal bones show no significant abnormality. Impression: Unremarkable CT scan of the brain. Dictated by: Dictated on workstation # [id number]
[2022-12-01 15:28] LABS: AMPHETAMINE SCREEN, URINE POSITIVE (NEGATIVE); BARBITURATE SCREEN URINE NEGATIVE (NEGATIVE); BENZODIAZEPINES SCREEN URINE NEGATIVE (NEGATIVE); CANNABINOID SCREEN, URINE NEGATIVE (NEGATIVE); COCAINE SCREEN URINE NEGATIVE (NEGATIVE); METHADONE STAT NEGATIVE (NEGATIVE); OPIATE SCREEN URINE NEGATIVE (NEGATIVE); OXYCODONE STAT NEGATIVE (NEGATIVE); PROPOXYPHENE STAT NEGATIVE (NEGATIVE); TRICYCLIC ANTIDEPRESSANTS SCRE NEGATIVE (NEGATIVE)
[2022-12-01 15:39] VITALS: BP_SYST 122; BP_SYST 136; BP_SYST 144; BP_DIAS 64; BP_DIAS 81; BP_DIAS 92
[2022-12-01 15:44] VITALS: BP 134/75
== END 2022-12-01 15:44 | disposition home or self-care (01) ==
LOC: EDUNIT# 12:13 → ER 12:16
DX: R55 Syncope and collapse (principal); H53.8 Other visual disturbances; R53.1 Weakness; F17.210 Nicotine dependence, cigarettes, uncomplicated; Z28.310 Unvaccinated for COVID-19
CPT/HCPCS: 70450; 80053; 80306; 83690; 83735; 85025; 93005; 99284; G0480; 36415; 80320

== ENCOUNTER 2023-03-09 08:39 | Emergency (ER) | payer SELFPAY ==
[~2023-03-09] VITALS: Ht 157 cm; Wt 81.0 kg
[2023-03-09 08:52] VITALS: BP 143/105
[2023-03-09] MEDS ORDERED: ACETAMINOPHEN 500 MG TABLET PO ONE (09:00)
--- NOTE | 2023-03-09 09:02 | ED General ---
General Chief Complaint: General Problems/Pain Stated Complaint: HEAD PRESSURE | BILAT EAR PAIN | DETOX Nursing Triage Note: ARRIVED VIA AMB TO ROOM 06 WITH COMPLAINTS OF DIZZINESS, HEAD PRESSUER, AND BILAT EAR PAIN. PT IS WANTING DETOX FROM [place] AND IS ON DAY TWO OF NO ETOH. PT ALSO HAS A HX OF PSEUDO TUMOR. Source of Information: Patient, Old Records Exam Limitations: No Limitations History of Present Illness Date Seen by Provider: Mar 09, 2023 Time Seen by Provider: 08:40 Initial Comments 42-year-old female with past medical history of pseudotumor cerebri and polysubstance use disorder coming in due to multiple issues. Most notably she is noting head pressure, lightheadedness, bilateral ear pain. She states this has been going on for months. Additionally, she is wanting to detox from whiskey. She last drank yesterday morning. She typically has 1/5 of alcohol per day. She states she is not having any signs of withdrawal as of yet. She has not had a lumbar puncture in some time, and is off her acetazolamide as well because she cannot afford it. Denies any neck stiffness, vision changes, chest pain, shortness of breath, or any other concerns. She is on her period currently. She states she last used meth probably last week. Allergies and Home Medications Allergies Coded Allergies: acetaminophen (Unverified Allergy, Mild, NAUSEA, 12/01/22) hydrocodone (Unverified Allergy, Mild, NAUSEA, 12/01/22) codeine (Verified Allergy, Unknown, 12/01/22) Patient Home Medication List Home Medication List Reviewed: Yes Acetazolamide (Acetazolamide ER) 500 Mg Capsule.er, 500 MG PO BID Prescribed by: GWEN MAXWELL on 08/14/20 1149 Cephalexin (Cephalexin) 500 Mg Tablet, 500 MG PO TID Prescribed by: GWEN MAXWELL on 08/14/20 1149 Sulfamethoxazole/Trimethoprim (Bactrim Ds Tablet) 1 Each Tablet, 1 EACH PO BID Prescribed by: MANOJ MOELLER on 03/26/17 1409 Review of Systems Review of Systems Constitutional: No fever EENTM: see HPI Respiratory: no symptoms reported Cardiovascular: no symptoms reported Gastrointestinal: no symptoms reported Musculoskeletal: no symptoms reported Past Acodfol-Hualef-Qznpry Hx Patient Social History Tobacco Use?: Yes Tobacco type used: Cigarettes Smoking Status: Current Everyday Smoker Substance use?: Yes Substance type: Methamphetamine Additional substance use comme: STATES LAST WEEK WAS THE LAST METH USE Alcohol Use?: Yes Alcohol type: Hard Liquor Alcohol Frequency: Daily Immunizations Up To Date First/Initial COVID19 Vaccinat: NO Seasonal Allergies Seasonal Allergies: No Past Medical History Surgery/Hospitalization HX: DENIES CSECTION Surgeries: Yes (RT Ankle surgery x 2) Section, Orthopedic, Tubal Ligation Respiratory: No Cardiac: No Neurological: No Reproductive Disorders: Yes Sexually Transmitted Disease: Yes (HPV) Genitourinary: No Gastrointestinal: No Musculoskeletal: No Endocrine: No HEENT: No Cancer: No Psychosocial: Yes Schizophrenia Integumentary: No Blood Disorders: No Family Medical History No Pertinent Family Hx Physical Exam Vital Signs Vital Signs - First Documented 03/09/23 08:52 Temp 36.3 Pulse 93 Resp 16 B/P (MAP) 143/105 (118) Pulse Ox 98 O2 Delivery Room Air Capillary Refill : Less Than 3 Seconds Height, Weight, BMI Height: 5'2.00" Weight: 220lbs. 0.00oz. 99.022665ib; 32.00 BMI Method:Stated General Appearance: No Apparent Distress, WD/WN Eyes: Bilateral Eye Normal Inspection, Bilateral Eye PERRL, Bilateral Eye EOMI HEENT: PERRL/EOMI, TMs Normal, Normal ENT Inspection, Pharynx Normal Neck: Full Range of Motion, Normal Inspection, Non Tender, Supple Respiratory: Chest Non Tender, Lungs Clear, Normal Breath Sounds, No Accessory Muscle Use, No Respiratory Distress Cardiovascular: Regular Rate, Rhythm, No Edema, Normal Peripheral Pulses Gastrointestinal: Normal Bowel Sounds, Non Tender, Soft; No Distended, No Guarding Back: Normal Inspection, No CVA Tenderness Extremity: Normal Capillary Refill, Normal Inspection, Normal Range of Motion, Non Tender, No Calf Tenderness, No Pedal Edema Neurologic/Psychiatric: Alert, Oriented x3, No Motor/Sensory Deficits, Normal Mood/Affect, stunner animal II-XII Norm as Tested, Other (Normal gait, normal visual foster and visual acuity) Skin: Normal Color, Warm/Dry Progress/Results/Core Measures Suspected Sepsis SIRS Temperature: Pulse: 93 Respiratory Rate: 16 Blood Pressure 143 /105 Mean: 118 Results/Orders Lab Results Laboratory Tests Test 03/09/23 09:00 Range/Units My Orders Orders - LOAN WELLS MD Influenza A And B By Pcr (03/09/23 08:57) Covid 19 Inhouse Test (03/09/23 08:57) Acetaminophen Tablet (Acetaminophen Ta (03/09/23 09:00) Ketorolac Injection (Ketorolac Injection (03/09/23 09:15) Vital Signs/I&O 03/09/23 08:52 Temp 36.3 Pulse 93 Resp 16 B/P (MAP) 143/105 (118) Pulse Ox 98 O2 Delivery Room Air Capillary Refill : Less Than 3 Seconds Blood Pressure Mean: 118 Progress Note : Progress Note 42-year-old female with above history coming in due to head pressure, ear pain, lightheadedness. ABCs were intact and vitals were stable on presentation. Physical exam reassuring including a nonfocal neuro exam. Specifically, she has normal visual foster and visual acuity. No clinical signs of increased intracranial pressure. Offered Tylenol and Toradol for pain control which she accepted. She has no meningismus and is afebrile making meningitis very unlikely. We will do COVID and flu testing. I offered a therapeutic lumbar puncture given she has not had one in some time and this could be related to her symptoms. She does not want one at this time, and states she actually would like to be discharged so that she can go to her appointment at [facility] today. I discussed that alcohol withdrawal is potentially deadly, and she states that she plans to get help for this. It was shortly after having all this discussion with the patient that she deci ded to leave and go to [facility]. I once again did offer to do a work-up on her, but she does not want that at this time. Given she is going to seek appropriate care, I think it is appropriate and we went forward with discharge. She did not sign the discharge paperwork, however. Departure Impression Primary Impression: Headache Qualified Codes: G44.229 - Chronic tension-type headache, not intractable Additional Impression: Alcohol use disorder Disposition: 01 HOME, SELF-CARE Condition: Stable Departure-Patient Inst. Decision time for Depature: 09:10 Referrals: [facility] (PCP/Family) Primary Care Physician Patient Instructions: Alcohol Use Disorder ED, Idiopathic intracranial hypertension (pseudotumor cerebri) Add. Discharge Instructions: Please follow-up with [facility] as soon as possible. We do recommend either going through them or going to [facility] to try to have formal alcohol detox. Please follow back up with your regular doctor as well to really start medications for pseudotumor cerebri as well as have them potentially plan for an outpatient lumbar puncture. LOAN WELLS MD Mar 09, 2023 09:02
[2023-03-09] MEDS ORDERED: KETOROLAC INJ 15 MG/ML VIAL IM ONE (09:15)
== END 2023-03-09 09:06 | disposition home or self-care (01) ==
LOC: EDUNIT# 08:39 → ER 08:41
DX: R51.9 Headache, unspecified (principal); F10.10 Alcohol abuse, uncomplicated; F17.210 Nicotine dependence, cigarettes, uncomplicated; Z28.310 Unvaccinated for COVID-19; Z20.822 Contact with and (suspected) exposure to COVID-19
CPT/HCPCS: 87636; 99285

== ENCOUNTER 2023-05-06 05:52 | Emergency (ER) | payer SELFPAY ==
[~2023-05-06] VITALS: Ht 165 cm; Wt 74.8 kg
[2023-05-06 05:55] VITALS: BP 153/101
--- NOTE | 2023-05-06 06:13 | ED General ---
General Chief Complaint: Psych/Social Disorder Stated Complaint: ANXIETY Nursing Triage Note: PATIENT BROUGHT BY EMS TO ER WITH COMPLAINT OF NOT FEELING WELL AFTER WAKING UP. FEELING HOT, COLD, DIZZY, SWEATY ALL OVER Source of Information: Patient, EMS Exam Limitations: No Limitations History of Present Illness Date Seen by Provider: May 06, 2023 Time Seen by Provider: 05:55 Initial Comments 43-year-old female with past medical history most notable for pseudotumor cerebri and alcohol use disorder coming in via EMS due to sinus pressure, anxiety, and shortness of breath. She states she woke up this morning, was happy, and then all of a sudden felt short of breath and was sweating. She had some chest discomfort at that time which is still present and has been going on now for well over an hour. She drinks regularly, mostly at nighttime. She did drink last night. Denies any fever, abdominal pain, vomiting, diarrhea, weakness, numbness, or any other concerns. Allergies and Home Medications Allergies Coded Allergies: acetaminophen (Unverified Allergy, Mild, NAUSEA, 12/01/22) hydrocodone (Unverified Allergy, Mild, NAUSEA, 12/01/22) codeine (Verified Allergy, Unknown, 12/01/22) Patient Home Medication List Home Medication List Reviewed: Yes Acetazolamide (Acetazolamide ER) 500 Mg Capsule.er, 500 MG PO BID Prescribed by: GWEN MAXWELL on 08/14/20 1149 Cephalexin (Cephalexin) 500 Mg Tablet, 500 MG PO TID Prescribed by: GWEN MAXWELL on 08/14/20 1149 Sulfamethoxazole/Trimethoprim (Bactrim Ds Tablet) 1 Each Tablet, 1 EACH PO BID Prescribed by: MANOJ MOELLER on 03/26/17 1409 Review of Systems Review of Systems Constitutional: No fever EENTM: no symptoms reported Respiratory: see HPI Cardiovascular: see HPI Gastrointestinal: no symptoms reported Genitourinary: no symptoms reported Musculoskeletal: no symptoms reported Skin: no symptoms reported Psychiatric/Neurological: See HPI Hematologic/Lymphatic: No Symptoms Reported Past Ghfjzjs-Xopwis-Mrvtfy Hx Immunizations Up To Date First/Initial COVID19 Vaccinat: NO Seasonal Allergies Seasonal Allergies: No Past Medical History Surgery/Hospitalization HX: DENIES CSECTION Surgeries: Yes (RT Ankle surgery x 2) Section, Orthopedic, Tubal Ligation Respiratory: No Cardiac: No Neurological: No Reproductive Disorders: Yes Sexually Transmitted Disease: Yes (HPV) Genitourinary: No Gastrointestinal: No Musculoskeletal: No Endocrine: No HEENT: No Cancer: No Psychosocial: Yes Schizophrenia Integumentary: No Blood Disorders: No Family Medical History No Pertinent Family Hx Physical Exam Vital Signs Vital Signs - First Documented 05/06/23 05:55 Temp 37.3 Pulse 87 Resp 20 B/P (MAP) 153/101 (118) Pulse Ox 99 O2 Delivery Room Air Capillary Refill : Less Than 3 Seconds Height, Weight, BMI Height: 5'2.00" Weight: 220lbs. 0.00oz. 99.693305qw; 27.00 BMI Method:Stated General Appearance: WD/WN, Anxious Eyes: Bilateral Eye Normal Inspection, Bilateral Eye PERRL, Bilateral Eye EOMI, Bilateral Eye Other (20/20 vision bilaterally) HEENT: PERRL/EOMI, Normal ENT Inspection, Pharynx Normal Neck: Full Range of Motion, Normal Inspection, Non Tender, Supple Respiratory: Chest Non Tender, Lungs Clear, Normal Breath Sounds, No Accessory Muscle Use, No Respiratory Distress Cardiovascular: Regular Rate, Rhythm, No Edema, Normal Peripheral Pulses Gastrointestinal: Normal Bowel Sounds, Non Tender, Soft; No Distended, No Guarding Back: Normal Inspection, No CVA Tenderness Extremity: Normal Capillary Refill, Normal Inspection, Normal Range of Motion, Non Tender, No Calf Tenderness, No Pedal Edema Neurologic/Psychiatric: Alert, No Motor/Sensory Deficits, Normal Mood/Affect Skin: Normal Color, Warm/Dry Progress/Results/Core Measures Suspected Sepsis SIRS Temperature: Pulse: 87 Respiratory Rate: 20 Blood Pressure 153 /101 Mean: 118 Results/Orders My Orders Orders - LOAN WELLS MD Chest 1 View, Ap/Pa Only (05/06/23 06:08) Ekg Tracing (05/06/23 06:08) Monitor-Rhythm Ecg Trace Only (05/06/23 06:08) Lorazepam Injection (Lorazepam Injection (05/06/23 06:16) Droperidol Injection (Ed Only) (Droperid (05/06/23 06:16) Vital Signs/I&O 05/06/23 05:55 Temp 37.3 Pulse 87 Resp 20 B/P (MAP) 153/101 (118) Pulse Ox 99 O2 Delivery Room Air Capillary Refill : Less Than 3 Seconds Blood Pressure Mean: 118 Progress Note : Progress Note 43-year-old female with above history coming in mostly due to anxiety and feeling like she cannot get enough air. Her oxygen was 98% on room air, and she had clear lung sounds and was in no distress on arrival. She is low risk for PE per [place] criteria, and no clinical signs of a DVT. Overall, I think a PE is very unlikely. Additionally, she is PERC negative. I offered the patient an IV and blood work. She was a former IV drug user, she did not allow any type of blood work and flat out refused. Offered her an EKG which she refused. Offered her a chest x-ray which she was amenable to. I do not see any obvious pneumonia, pneumothorax, and her cardiac silhouette is unremarkable. She did take IM Ativan 0.5 mg and droperidol 1.25 mg which would be a low-dose for each continues to be well-appearing, continues to not really want any other care despite multiple attempts from me asking to try to help her. Ultimately, she was discharged with information on how to follow-up with [facility] to help with her issues affording healthcare. Diagnostic Imaging Diagonstic Imaging: Xray (chest) Comments [facility], [place] NAME: IVON SALCIDO I [facility] REC#: [id number] PT STATUS: DEP ER : 1980 PHYSICIAN: LOAN WELLS MD ADMIT DATE: 05/06/23/ER Draft Date of Exam:05/06/23 CHEST 1 VIEW, AP/PA ONLY Clinical indications: Patient with chest pain. EXAM: Portable chest x-ray upright view. COMPARISON: None. FINDINGS: Lungs/pleura: There is mild bilateral atelectasis in the lung bases. Otherwise, lungs are clear. There is no pneumothorax. There is no pleural effusion. Mediastinum: Unremarkable. Pulmonary vasculature: Unremarkable. Heart: Unremarkable. Bones/extrathoracic soft tissue: There is left curvature of the thoracolumbar spine. IMPRESSION: 1: There is no radiographic evidence of acute cardiopulmonary process. There is mild bibasilar atelectasis. Dictated on workstation # [id number] Dict: 05/06/23 0644 Trans: 05/06/23 0705 [facility] [id number] Interpreted by: AUSTIN MONSON MD Electronically signed by: Departure Impression Primary Impression: Alcohol use disorder Disposition: 01 HOME, SELF-CARE Condition: Stable Departure-Patient Inst. Decision time for Depature: 07:00 Referrals: [facility] (PCP/Family) Primary Care Physician Patient Instructions: ALCOHOL AND SUBSTANCE ABUSE, Chest Pain, Adult ED Add. Discharge Instructions: We recommend following up with [facility] and filling out a form further medication assistance. They can help you afford your medicines for your pseudotumor cerebri if you cannot afford them. Their number is in this paperwork. Please call today and schedule an appointment as soon as possible. They can also help you with your alcohol use if you would like. LOAN WELLS MD May 06, 2023 06:12
[2023-05-06] MEDS ORDERED: DroPERidol INJECTION 5 MG/2 ML (ED ONLY!) IV ONE (06:15)
[2023-05-06] MEDS ORDERED: DroPERidol INJECTION 5 MG/2 ML (ED ONLY!) IM STA (06:16)
--- NOTE | 2023-05-06 07:06 | Diagnostic Imaging Report ---
Clinical indications: Patient with chest pain. EXAM: Portable chest x-ray upright view. COMPARISON: None. FINDINGS: Lungs/pleura: There is mild bilateral atelectasis in the lung bases. Otherwise, lungs are clear. There is no pneumothorax. There is no pleural effusion. Mediastinum: Unremarkable. Pulmonary vasculature: Unremarkable. Heart: Unremarkable. Bones/extrathoracic soft tissue: There is left curvature of the thoracolumbar spine. IMPRESSION: 1: There is no radiographic evidence of acute cardiopulmonary process. There is mild bibasilar atelectasis. Dictated by: Dictated on workstation # [id number]
== END 2023-05-06 06:39 | disposition home or self-care (01) ==
LOC: EDUNIT# 05:52 → ER 05:53
DX: F10.10 Alcohol abuse, uncomplicated (principal)
CPT/HCPCS: 71045; 93041; 96372